=== PATIENT | male | born 1955 | race Caucasian/White ===

== ENCOUNTER 2016-11-19 15:25 | Emergency (ER) | payer OTHER ==
[~2016-11-19] VITALS: Ht 182.9 cm; Wt 115.0 kg
[~2016-11-19 15:25] MED LIST: ATOR40TA PO; CLON0.5T PO; DICL1GEL TOP; DOXY100T PO; HYDR-3533 PO; MOBI7.5T PO
[2016-11-19 15:27] VITALS: BP 137/88; PULSE 79; RESP 16; TEMP 98; O2SAT 97
[2016-11-19] MEDS ORDERED: ATOR40TA16 PO (16:54)
[2016-11-19] MEDS ORDERED: TRAZ100T6 PO (16:54)
[2016-11-19] MEDS ORDERED: ACETAMINOPHEN/HYDROcodone 325 MG/7.5 MG TAB PO ONE (17:00)
--- NOTE | 2016-11-19 17:00 | PD ---
HPI Chief Complaint: Injury Time Seen by Provider: 16:53 Travel History International Travel<30 days: No Contact w/Intl Traveler<30days: No Traveled to known affect area: No History of Present Illness HPI 61-year-old male presents the emergency Department with left shoulder pain. Patient states history of biceps tendon rupture years ago, with secondary total shoulder replacement several years ago. Patient states he was on ladder yesterday when he slipped causing a hyperextension injury to the left shoulder. Now he has pain and decreased range of motion secondary to discomfort. He denies significant weakness other than from pain. He has no numbness or tingling. Patient states the pain was so bad he had difficulty sleeping last night. He is currently an 8 out of 10 especially with movement. He is allergic to amlodipine, aspirin, and penicillin. 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) Influenza Vaccination: Yes Past Surgical History Joint Replacement: Yes (shoulder-bilateral, rt hip) Tonsillectomy: Yes Social History Alcohol Use: No Tobacco Use: No Substance Use: No Allergies-Medications (Allergen,Severity, Reaction): Coded Allergies: Amlodipine (Verified Allergy, Severe, pain, edema, 11/19/16) Aspirin (Verified Allergy, Severe, unknown, 11/19/16) Penicillin (Verified Allergy, Severe, respiratory, 11/19/16) Reported Meds & Prescriptions Reported Meds & Active Scripts Active Lortab (Hydrocodone-Acetaminophen) 5-325 Mg Tab 1-2 Tab PO Q6H PRN Reported Trazodone (Trazodone HCl) 100 Mg Tablet 100 Mg PO HS Atorvastatin (Atorvastatin Calcium) 40 Mg Tab 40 Mg PO HS Review of Systems Except as stated in HPI: all other systems reviewed are Neg General / Constitutional: No: Fever Eyes: No: Visual changes HENT: No: Headaches Cardiovascular: No: Chest Pain or Discomfort Respiratory: No: Shortness of Breath Gastrointestinal: No: Abdominal Pain Genitourinary: No: Dysuria Musculoskeletal: Positive: Myalgias, Arthralgias, Limited ROM, Pain Skin: No Rash Neurologic: No: Weakness Psychiatric: No: Depression Endocrine: No: Polydipsia Hematologic/Lymphatic: No: Easy Bruising Physical Exam Narrative GENERAL: Patient appears in moderate distress. SKIN: Warm and dry. Normal turgor. HEAD: Atraumatic. Normocephalic. EYES: Pupils equal and round. No scleral icterus. No injection or drainage. ENT: No nasal bleeding or discharge. Mucous membranes pink and moist. Pharynx is clear. NECK: Trachea midline. No JVD. No bony tenderness or step-off. Range of motion is full and without tenderness. CARDIOVASCULAR: Regular rate and rhythm. RESPIRATORY: No accessory muscle use. Clear to auscultation. Breath sounds equal bilaterally. MUSCULOSKELETAL: Extremities without clubbing, cyanosis, or edema. No obvious deformities. Previous scar from surgery is noted. Patient has notable tenderness with palpation mainly in the anterior and upper aspects. Range of motion is significantly limited secondary to pain but strength appears to be intact. NEUROLOGICAL: Awake and alert. No obvious cranial nerve deficits. Motor grossly within normal limits. Five out of 5 muscle strength in the arms and legs except is limited by pain.. Normal speech. PSYCHIATRIC: Appropriate mood and affect; insight and judgment normal. Data Data Last Documented VS Vital Signs Date Time Temp Pulse Resp B/P Pulse Ox O2 Delivery O2 Flow Rate FiO2 11/19/16 16:49 15 97 Room Air 11/19/16 15:27 98.0 79 137/88 Orders Shoulder, Complete (>2vws) (11/19/16 16:51) Ice/Cold Pack (11/19/16 16:51) Acetamin-Hydrocod 325-7.5 Mg ([place] 7.5 (11/19/16 17:00) Splint Or Brace Apply/Monitor (11/19/16 18:16) Sling Cradle Arm (11/19/16 ) [facility] Medical Decision Making Medical Screen Exam Complete: Yes Emergency Medical Condition: Yes Medical Record Reviewed: Yes Differential Diagnosis Slip and fall. Left shoulder pain. Left shoulder hyperextension injury. Possible rotator cuff tear. AC separation. Fracture. Narrative Course Patient is medically stable at time of exam. X-ray of the left shoulder is ordered and ice pack is applied. Patient is given Lortab 7.5/325 by mouth 1. X-ray shows no acute findings per radiologist. Prosthesis appears normal. Patient is placed in a sling for comfort. Patient is given a prescription for Lortab 5/325 one to 2 tabs every 6 hours when necessary #15. Patient is to follow with his [facility] care [facility] as discussed. Patient is instructed to take the arm out of the sling frequently to prevent stiffening. Patient can return with worsening symptoms as needed. Diagnosis Primary Impression: Injury of left shoulder and upper arm Qualified Code: S49.92XA - Injury of left shoulder and upper arm, initial encounter Referrals: [facility]opedist [facility] [place] Patient Instructions: General Instructions Additional Instructions: Patient is given Lortab 7.5/325 by mouth 1. X-ray shows no acute findings per radiologist. Prosthesis appears normal. Patient is placed in a sling for comfort. Patient is given a prescription for Lortab 5/325 one to 2 tabs every 6 hours when necessary #15. Patient is to follow with his primary care physician [facility] the [facility] an [facility]ist as discussed. Patient is instructed to take the arm out of the sling frequently to prevent stiffening. Patient can return with worsening symptoms as needed. Med/Other Pt SpecificInfo: Prescription(s) given Scripts Hydrocodone-Acetaminophen (Lortab)5-325 Mg Tab1-2 Tab PO Q6H PRN (PAIN) #15 TAB Prov:Gosia Hood MD 11/19/16 Condition: Stable Hussein Crenshaw Nov 19, 2016 17:00
--- NOTE | 2016-11-19 18:08 | RADRPT ---
EXAM DATE/TIME: 11/19/2016 17:10 [facility] COMPARISON: SHOULDER LEFT COMPLETE (>2VWS), December 29, 2015, 17:15. INDICATIONS : Left shoulder pain. MEDICAL HISTORY : None. SURGICAL HISTORY : Total shoulder. ENCOUNTER: Initial ACUITY: 2 days PAIN SCORE: 5/10 LOCATION: Left shoulder. FINDINGS: The patient has a prosthesis seen at the proximal left humerus. There is postoperative change at the glenoid region. There do appear to be at least two possible loose bodies seen in the subscapularis b ursa region measuring up to 2 cm. CONCLUSION: Chronic change at the shoulder as described above. This includes a prosthesis at the proximal humerus, post surgical change at the glenoid, and loose bodies within the subscapularis bur sa. Arden Nogueira MD on November 19, 2016 at 17:46 Board Certified Radiologist. This report was verified electronically.
[2016-11-19] MEDS ORDERED: HYDR-3533 PO ×2 (18:16→18:34)
== END 2016-11-19 18:54 | disposition home or self-care (01) ==
LOC: NEPD 15:25
DX: S49.92XA Unspecified injury of left shoulder and upper arm, initial encounter (principal); X50.0XXA Overexertion from strenuous movement or load, initial encounter; X50.9XXA Other and unspecified overexertion or strenuous movements or postures, initial encounter; Y93.89 Activity, other specified; Y92.9 Unspecified place or not applicable; E78.00 Pure hypercholesterolemia, unspecified; Z96.612 Presence of left artificial shoulder joint
CPT/HCPCS: 73030; 99283

== ENCOUNTER 2017-08-04 18:19 | Emergency (ER) | payer OTHER ==
[~2017-08-04] VITALS: Ht 185.4 cm; Wt 118.5 kg
[~2017-08-04 18:19] MED LIST changes: -ATOR40TA PO; +ATOR40TA16 PO; -CLON0.5T PO; -DICL1GEL TOP; -DOXY100T PO; -MOBI7.5T PO; +TRAZ100T10 PO
[2017-08-04 18:39] VITALS: BP 190/101; PULSE 118; RESP 16; TEMP 99.2; O2SAT 94
--- NOTE | 2017-08-04 19:14 | PD ---
HPI Chief Complaint: Allergic/Adverse Reaction Time Seen by Provider: 18:57 Travel History International Travel<30 days: No Contact w/Intl Traveler<30days: No Traveled to known affect area: No History of Present Illness HPI Patient 62-year-old male presents emergency department for evaluation of screaming at night. Patient states that he is having a bad reaction to his hydrocodone is been on for years for chronic shoulder pain as well as low back pain. He states that his roommate kicked him out and told me had to be seen by a doctor or he would let him stay with him anymore. Patient states he has not acted out has not had anybody is not suicidal homicidal is just woken up in the past few nights screaming. Patient states he already had a sleep study test which was negative. He has no other complaints,, denies any chest pain shortness breath abdominal pain nausea vomiting diarrhea, focalized weakness, tremors suicidal ideation or homicidal ideation. He states symptoms been going on for only the past 4 days. 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) Tetanus Vaccination: < 5 Years Past Surgical History Joint Replacement: Yes (shoulder-bilateral, rt hip) Tonsillectomy: Yes Social History Alcohol Use: No Tobacco Use: No Substance Use: No Allergies-Medications (Allergen,Severity, Reaction): Coded Allergies: amlodipine (Unverified Allergy, Severe, pain, edema, 08/04/17) aspirin (Unverified Allergy, Severe, unknown, 08/04/17) penicillin G (Unverified Allergy, Severe, respiratory, 08/04/17) Reported Meds & Prescriptions Reported Meds & Active Scripts Active Reported Atorvastatin (Atorvastatin Calcium) 40 Mg Tab 40 Mg PO HS Review of Systems Except as stated in HPI: all other systems reviewed are Neg Physical Exam Narrative GENERAL: Well-nourished, well-developed patient. SKIN: Focused skin assessment warm/dry. HEAD: Normocephalic. EYES: No scleral icterus. No injection or drainage. NECK: Supple, trachea midline. No JVD or lymphadenopathy. CARDIOVASCULAR: Regular rate and rhythm without murmurs, gallops, or rubs. RESPIRATORY: Breath sounds equal bilaterally. No accessory muscle use. GASTROINTESTINAL: Abdomen soft, non-tender, nondistended. MUSCULOSKELETAL: No cyanosis, or edema. BACK: Nontender without obvious deformity. No CVA tenderness. Psychiatric: Appropriate mood and on affect, denies any suicidal homicidal ideation. Denies a history of psychiatric disease. Normal behavior. Data Data Last Documented VS Vital Signs Date Time Temp Pulse Resp B/P (MAP) Pulse Ox O2 Delivery O2 Flow Rate FiO2 08/04/17 20:21 84 18 176/88 (117) 97 08/04/17 18:45 Room Air 08/04/17 18:39 99.2 Orders Orders Ed Discharge Order (08/04/17 19:14) [facility] Medical Decision Making Medical Screen Exam Complete: Yes Emergency Medical Condition: No Differential Diagnosis Nonicteric, sleep apnea, acute medical emergency highly unlikely Narrative Course Patient was room to the emergency department, his symptoms do not represent acute medical or psychiatric emergency. On my initial evaluation the patient he was only satting 89 it was sleeping soundly, upon awakening his saturation immediately were saul to 96%. I brought up the possibility of sleep apnea and discussed this with him. This is when he told me he is already had a sleep study. He has a completely reassuring physical examination is no indication further workup here in the emergency department. I discussed with him that is okay for him to return home and stay with his roommate. Discussed need follow- up with the [facility] and discuss returning to emergency depart criteria Diagnosis Primary Impression: Night terror Additional Instructions[facility] It is okay to return home and stay with your roommate. Disposition: 01 DISCHARGE HOME Condition: Stable Jonel Schaeffer MD Aug 04, 2017 19:14
[2017-08-04 20:21] VITALS: BP 176/88
== END 2017-08-04 20:22 | disposition home or self-care (01) ==
LOC: PHED 18:19
DX: F51.4 Sleep terrors [night terrors] (principal); I10 Essential (primary) hypertension; E78.00 Pure hypercholesterolemia, unspecified; J45.909 Unspecified asthma, uncomplicated; F41.9 Anxiety disorder, unspecified; Z88.0 Allergy status to penicillin; Z88.8 Allergy status to other drugs, medicaments and biological substances; Z79.899 Other long term (current) drug therapy
CPT/HCPCS: 99281